=== PATIENT | female | born 1980 | race Caucasian/White ===

== ENCOUNTER → 2018-08-21 | Outpatient (CLI) | payer BC | END | disposition home or self-care (01) | LOC: RAD 08:29 | DX: M19.072 Primary osteoarthritis, left ankle and foot (principal); M77.32 Calcaneal spur, left foot ==

== ENCOUNTER 2019-05-23 15:48 | Emergency (ER) | payer OTHER, BC ==
[~2019-05-23] VITALS: Wt 68.0 kg
[2019-05-23] MEDS ORDERED: ROBAXIN-750750 MG PO (18:01)
[2019-05-23] MEDS ORDERED: ANAPROX DS550 MG PO (18:01)
== END 2019-05-23 18:22 | disposition home or self-care (01) ==
LOC: ED 15:48
DX: M54.9 Dorsalgia, unspecified (principal); R07.89 Other chest pain; E03.9 Hypothyroidism, unspecified; V43.62XA Car passenger injured in collision with other type car in traffic accident, initial encounter; Y93.89 Activity, other specified; Y92.89 Other specified places as the place of occurrence of the external cause; Y99.8 Other external cause status